=== PATIENT | female | born 1945 | race Hispanic/Latino ===

== ENCOUNTER 2019-01-31 02:17 | Emergency (ER) | payer MEDICARE ==
[2019-01-31] MEDS ORDERED: MORPHINE IM ONE (03:25)
[2019-01-31] MEDS ORDERED: ZOFRAN IM ONE (03:25)
[2019-01-31] MEDS ORDERED: BACTRIM DS PO ONE (03:26)
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
[2019-01-31 06:05] VITALS: BP 118/50
== END 2019-01-31 06:00 | disposition home or self-care (01) ==
LOC: ED 02:17
DX: T24.202A Burn of second degree of unspecified site of left lower limb, except ankle and foot, initial encounter (principal); T24.201A Burn of second degree of unspecified site of right lower limb, except ankle and foot, initial encounter; I10 Essential (primary) hypertension; Z95.5 Presence of coronary angioplasty implant and graft; Z90.49 Acquired absence of other specified parts of digestive tract; Z91.041 Radiographic dye allergy status; Z88.8 Allergy status to other drugs, medicaments and biological substances; Z88.0 Allergy status to penicillin; W22.10XA Striking against or struck by unspecified automobile airbag, initial encounter; Y93.89 Activity, other specified; Y92.89 Other specified places as the place of occurrence of the external cause; Y99.8 Other external cause status
CPT/HCPCS: 16000; 96372; 99283; J2270; J2405